=== PATIENT | female | born 1970 | race Caucasian/White ===

== ENCOUNTER 2022-07-19 19:49 | Emergency (ER) | payer MEDICARE, MEDICAID, SELFPAY ==
[2022-07-19 21:08] VITALS: BP 135/51; PULSE 57; RESP 16; TEMP 36.3; O2SAT 99; BMI 23.6
--- NOTE | 2022-07-19 21:08 | ED_ITS ---
HPI - General Adult General Stated complaint: sinus infection? Source: patient Mode of arrival: ambulatory Limitations: no limitations History of Present Illness HPI narrative: This is a 52-year-old female with significant medical history presenting to the emergency department for evaluation of facial congestion, sinus pressure, frontal been like headache x2 days. Patient reports associated fatigue, malaise. Tells me this feels like her typical sinus infection, she has had in the past and feels exactly the same. When patient blows her nose there is Lyme green/yellow nasal discharge. No known sick contacts. COVID test at home which is negative. Denies fevers, chills, chest pain, shortness of breath, nausea, vomiting, vision changes, dizziness, head trauma. Related Data Previous Rx's Medication Instructions Recorded amoxicillin 875 mg-potassium 1 tab PO BID 10 days #20 tabs 07/19/22 clavulanate 125 mg tablet prednisone 20 mg tablet 40 mg PO DAILY 5 days #10 tabs 07/19/22 Allergies Allergy/AdvReac Type Severity Reaction Status Date / Time No Known Allergies Allergy Unknown Unverified 01/17/20 15:44 Review of Systems Review of Systems: Constitutional : No Weight loss, No Fever, No Chills, No Fatigue, No Malaise ENT/Mouth : No sore throat, No Rhinorrhea, + facial congestion, + sinus pressure Eyes: No Eye Pain, No Swelling, No Redness Cardiovascular : No Chest Pain, No SOB, No Dyspnea on Exertion, No Orthopnea, No Edema, No Palpitations Respiratory : No Cough, No Sputum, No Wheezing Gastrointestinal : No Nausea, No Vomiting, No Diarrhea, No Constipation, No abdominal Pain, No Hematochezia, No Melena Genitourinary : No Dysuria, No Urinary Frequency, No Hematuria, Musculoskeletal : No joint pain, No Myalgias, No Joint Swelling Skin : No Skin Lesions, No rash Neuro : No Weakness, No Numbness, No Dizziness, No Headache Psych : No Anxiety/Panic, No Depression All other systems reviewed and are negative Yes all other systems are reviewed and are negative FORMERLY [facility], 1928–1983 Past Medical History Attestation statement: The following information was validated with the patient. Source: old records reviewed and nursing notes reviewed Physical Exam ED Vital Signs: Vital signs stable Appearance: Alert.? Oriented X3.? No acute distress.? Head: Normocephalic, atraumatic, no step-offs or deformities + discomfort with palpation of facial sinuses. Pressure to face with forward bending. Eyes: Pupils equal, round and reactive to light.? ENT: Pharynx normal.? CVS: Normal heart rate and rhythm.? Pulses normal.? Respiratory: No respiratory distress.? Breath sounds normal.? Abdomen: Soft and nontender.? Skin: Skin warm and dry.? Normal skin color.? Normal skin turgor.? Extremities: No lower extremity edema.? No calf ttp. 5/5 strength to bilateral upper and lower extremities Neuro: Oriented X 3.? No motor deficit.? No sensory deficit. CN 2-12 intact . Normal [id number], [id number], and steady tandem gait with normal coordination. Negative Romberg and pronator drift. NIH stroke scale 0. Course Reevaluation(s) Reevaluation #1: Patient will go home with Augmentin and prednisone. Advised follow-up with PCP. Educated patient on diagnosis and treatment plan, answered all question, patient verbalizes understanding. At this time patient will be discharged home, advised to return with new or worsening symptoms. Educated on worrisome signs and symptoms and when to return. At this time I feel comfortable discharge home. Time: 21:12 Medical Decision Making Medical Decision Making [facility] Narrative: 2109 52-year-old female presents with sinus pressure, frontal headache that feels like a pressure, congestion x2 days. Feels like her typical sinus infection. Physical exam with discomfort with palpation of facial sinuses. Pressure to face with forward bending. Neuro nonfocal. Cerebellar intact. Likely sinusitis. Other differentials include viral illness. History and physical exam not consistent with intracranial hemorrhage, stroke, posterior stroke. Unlikely temporal arteritis. Plan at this time discharge patient home with antibiotics, prednisone. Differential Diagnosis Differential Diagnoses: The differential diagnosis associated with the presentation includes Likely sinusitis. Other differentials include viral illness. History and physical exam not consistent with intracranial hemorrhage, stroke, posterior stroke. Unlikely temporal arteritis. Admission/Observation Consideration of admission/observation: Escalation of care including admission/observation considered Not indicated Prescription Management I considered prescription management with: Antibiotic Core Measures AMI core measures followed: Yes Measure exclusions: not indicated Critical Care Time Critical Care Time Critical Care Time: No Discharge Plan Discharge Clinical Impression: Sinusitis Patient Disposition: Home, Self-Care Instructions: Sinusitis (ED) Additional Instructions: Take your medications as prescribed. If you were prescribed antibiotics today, it is important that you take your medication to their entirety, do not skip any doses, do not finish them early. Follow-up with your primary care provider this week. Return to the emergency department with new or worsening symptoms. Such as fevers, chills, chest pain, shortness of breath, nausea, vomiting, dizziness, headache, vision changes, lethargy In case of emergency call 911 Prescriptions: New amoxicillin-pot clavulanate 875-125 mg tablet 1 tab PO BID 10 Days Qty: 20 0RF prednisone 20 mg tablet 40 mg PO DAILY 5 Days Qty: 10 0RF Referrals: Physician,Unknown J [Primary Care Provider] - 2 days
== END 2022-07-19 21:28 | disposition home or self-care (01) ==
LOC: HO.ED 21:19
PROVIDERS: Emergency Provider Internal Medicine
DX: J32.9 Chronic sinusitis, unspecified (principal)
CPT/HCPCS: 99282; 99283